=== PATIENT | female | born 2000 | race African-American/Black ===

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

== ENCOUNTER 2020-11-07 23:43 | Emergency (ER) | payer OTHER ==
[2020-11-07 23:50] VITALS: BP 102/68; PULSE 72; TEMP 99; BMI 22.7
[2020-11-07] MEDS ORDERED: IBUPROFEN 400 MG TABLET (FP) PO ONE ×2 (23:56→23:57)
== END 2020-11-08 00:05 | disposition home or self-care (01) ==
LOC: FER 23:43
DX: M25.511 Pain in right shoulder (principal)
CPT/HCPCS: 99283-25